=== PATIENT | male | born 1990 | race Caucasian/White ===

== ENCOUNTER 2016-12-24 00:29 | Emergency (ER) | payer BC, OTHER ==
[2016-12-24 00:32] VITALS: TEMP 36.8; O2SAT 98; Ht 177.8 cm
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
[2016-12-24 01:23] LABS: BLOOD UREA NITROGEN 11 mg/dl (7-18); BUN/CREATININE RATIO 10.2 (10-20); CALCIUM 8.4 mg/dl (8.5-10.1); CARBON DIOXIDE 28 mmol/L (21-32); CHLORIDE 110 mmol/L (98-107); CREATININE 1.03 mg/dl (0.60-1.40); GLUCOSE 88 mg/dl (70-99); POTASSIUM 3.9 mmol/L (3.5-5.1); SODIUM 145 mmol/L (136-145)
[2016-12-24 04:01] VITALS: BP 109/48; PULSE 68; O2SAT 98
== END 2016-12-24 04:02 | disposition home or self-care (01) ==
LOC: C.EDD 00:31
DX: T51.0X1A Toxic effect of ethanol, accidental (unintentional), initial encounter (principal)